=== PATIENT | male | born 1960 | race Caucasian/White ===

== ENCOUNTER → 2016-11-22 | Outpatient (CLI) | payer BC ==
[~2016-11-22] MED LIST: ACTOS45 MG PO; ALLOPURINOL300 MG PO; AVANDAMET PO; BENZAPRIL PO; HYTRIN10 MG PO; LANTUS 10100 UNITS/ SC; LANTUS 3 M100 UNITS1 SC; LANTUS100 UNIT/1 SQ; MICARDIS HCT1 TABLE2 PO; PRAVASTATIN SOD40 MG PO
== END | disposition home or self-care (01) ==
LOC: CDC 13:27
DX: Z01.810 Encounter for preprocedural cardiovascular examination (principal); I45.9 Conduction disorder, unspecified
CPT/HCPCS: 93000

== ENCOUNTER → 2016-12-26 | Outpatient (CLI) | payer BC | END | disposition home or self-care (01) | LOC: NUC 09:49 | DX: C61 Malignant neoplasm of prostate (principal); M17.11 Unilateral primary osteoarthritis, right knee; M17.12 Unilateral primary osteoarthritis, left knee | CPT/HCPCS: 78306; A9503 ==